=== PATIENT | male | born 2000 | race Caucasian/White ===

== ENCOUNTER 2021-05-11 17:17 | Emergency (ER) | payer OTHER ==
[2021-05-11 18:13] LABS: HEMOGLOBIN 18.6 gm/dl (14.0-17.5); RED BLOOD COUNT 5.56 M/UL (4.20-5.50); WHITE BLOOD COUNT 14.4 K/UL (4.5-11.0)
[2021-05-11 18:36] LABS: BUN/CREATININE RATIO 17 (0-10)
[2021-05-11] MEDS ORDERED: MYLANTA MAXIMU355 ML PO (21:56)
[2021-05-11] MEDS ORDERED: ONDANSETRON ODT4 MG SL (21:56)
[2021-05-11] MEDS ORDERED: PROTONIX40 MG PO (21:56)
== END 2021-05-11 21:40 | disposition home or self-care (01) ==
LOC: ER1 17:17
PROVIDERS: Physician Assistant
DX: R10.11 Right upper quadrant pain (principal); R10.13 Epigastric pain; K92.0 Hematemesis; D75.1 Secondary polycythemia; F17.200 Nicotine dependence, unspecified, uncomplicated
CPT/HCPCS: 80053; 81001; 83690; 85025; 96374; 96375; 99284; C9113; G0480; J2405; J7030; Q9967